=== PATIENT | female | born 1960 | race African-American/Black ===

== ENCOUNTER → 2017-01-10 | Outpatient (CLI) | payer BC ==
[~2017-01-10] MED LIST: AMIODARONE PO; ANTIVERT PO; ASPIRIN81 MG PO; CORDARONE200 M1 PO; FERROUS SULFATE PO; GLUCOPHAGE500 M1 PO; GLUCOTROL PO; HUMAPEN LUXURA1 BOX; LEVEMIR FL100 UNIT/1; LEVEMIR SUBQ; LISINOPRIL PO; LISINOPRIL20 MG PO; LISINOPRIL5 MG PO; LORTAB 7.5-5001 TAB PO; METFORMIN HCL1000 M1 PO; METFORMIN PO; METOPROLOL TAR25 MG PO; XARELTO20 MG PO; ZESTORETIC 10/11 TAB PO
--- NOTE | ~2017-01-10 | EKG ---
PATIENT: UVALDO MONTILLA UNIT #: [id number] Ventricular Rate: 61 BPM Atrial Rate: 61 BPM P-R Interval: 134 ms QRS Duration: 72 ms Q-T Interval: 408 ms QTC Calculation(Bezet): 410 ms P [place]: 36 degrees Calculated R [place]: -3 degrees Calculated T [place]: 27 degrees Diagnosis Line: Normal sinus rhythm Diagnosis Line: Normal ECG Diagnosis Line: When compared with ECG of 05-AUG-2015 07:35, Diagnosis Line: No significant change was found Diagnosis Line: Confirmed by ANAHI TIM MD ([id number]) on 01/10/2017 Diagnosis Line: 7:40:17 PM INTERPRETING MD: MEETA RIVERA
[2017-01-10 08:19] LABS: HEMATOCRIT 36.9 % (35.0-45.0); MEAN CORPUSCULAR HGB CONC 32.5 g/dL (30-36); RED BLOOD COUNT 4.44 X10e (3.90-5.30); RED CELL DISTRIBUTION WIDTH 14.2 % (11.0-15.5); WHITE BLOOD COUNT 5.7 X10e3 (4.0-10.5)
[2017-01-10 08:23] LABS: INR 1.3; PROTHROMBIN TIME (PATIENT) 13.4 SECONDS (9.6-11.5)
[2017-01-10 08:38] LABS: BLOOD UREA NITROGEN 11 mg/dL (9-23); BUN/CREATININE RATIO 12.22; CARBON DIOXIDE 27 mmol/L (22-31); CHLORIDE 104 mmol/L (100-111); CREATININE SERUM 0.9 mg/dL (0.6-1.4); GLOM FILT RATE Estimated ABOVE60 mL/min (>60); GLUCOSE FASTING 142 mg/dL (70-110); POTASSIUM 4.3 mmol/L (3.5-5.1); SODIUM 140 mmol/L (135-145)
== END | disposition home or self-care (01) ==
LOC: CCVL 07:41
PROVIDERS: Internal Medicine Cardiovascular Disease
DX: I25.118 Atherosclerotic heart disease of native coronary artery with other forms of angina pectoris (principal); E11.9 Type 2 diabetes mellitus without complications; I11.9 Hypertensive heart disease without heart failure; I48.0 Paroxysmal atrial fibrillation; Z79.01 Long term (current) use of anticoagulants; Z79.82 Long term (current) use of aspirin
CPT/HCPCS: 36415; 80048; 85027; 85610; 85730; 93005; C1769; C1887; C1894; J1644; J2250; J3010

== ENCOUNTER 2017-01-29 13:43 | Emergency (ER) | payer BC ==
--- NOTE | ~2017-01-29 | US85 ---
[facility] A Service of [facility] & [facility] RADIOLOGY TEXT RESULTS PATIENT: UVALDO MONTILLA LOCATION: [facility] : 60 UNIT #: [id number] AGE: [address]: Nicholas Araya MD SEX: F ORDER DR: [id number] [facility] [address] [place], [place] [address] [id number] E MR#: [id number] Acc #: [id number] NAME: UVALDO MONTILLA. : 1960 SEX: F STUDY DATE/TIME: 01/29/2017 11:12 UNIT: [facility] ROOM: STUDY DESCRIPTION: LE Scutum Unilat or Ltd Stdy Attending Physician: Nicholas Araya M.D. Ordering Physician: Quan Starr M.D. Primary Care Physician: [facility] MEDICAL IMAGING REPORT This report is preliminary unless electronic signature is present EXAM Left lower extremity venous Doppler INDICATION Pain, weakness in the left leg for 1 day. TECHNIQUE Venous ultrasound examination of the left lower extremity was performed using grayscale, spectral Doppler and color flow Doppler imaging. FINDINGS The examination is negative. There is no evidence of left lower extremity deep venous thrombus from the groin to the lower calf. Visualized greater saphenous vein is also patent. IMPRESSION Negative. Dictated by... Carlota Ontiveros M.D. THIS IS AN ELECTRONICALLY VERIFIED REPORT Carlota Ontiveros M.D. at 01/29/2017 5:16 PM AFF/jw TD: 01/29/2017 16:07 JOB #: [id number] MEDICAL IMAGING REPORT COPY
== END 2017-01-29 14:30 | disposition home or self-care (01) ==
LOC: CED 13:43
DX: M79.652 Pain in left thigh (principal); I10 Essential (primary) hypertension; E11.9 Type 2 diabetes mellitus without complications; I48.91 Unspecified atrial fibrillation
CPT/HCPCS: 93971; 99284